=== PATIENT | female | born 1970 | race Two or more races ===

== ENCOUNTER 2020-09-30 11:22 | Emergency (ER) | payer OTHER ==
[~2020-09-30] VITALS: Ht 152.4 cm; Wt 69.4 kg
[2020-09-30] MEDS ORDERED: OXYcodone/APAP 5/325MG TABLET ONE (11:46)
--- NOTE | 2020-09-30 11:49 | NUR ---
PT ARRIVED COMPLAIING OF L ELBOW AND L HIP PAIN POST FALL. NICOLÁS JAUREGUI AT BEDSIDE TO DISCUSS POC WITH PT. PT RATES PAIN A 8/10 AND DOES NOT RADIATE. PT ACCOMPANIED BY FAMILY MEMEBER AT BEDSIDE. CMS INTACT. PT CONNECTED TO CONTINIOUS BP AND O2 MONITORS. TOMMIE.
--- NOTE | 2020-09-30 11:51 | NUR ---
PT MEDICATED FOR PAIN RATED 8/10 PER MAR.
[2020-09-30 11:55] VITALS: BP 135/54
[2020-09-30] MEDS ORDERED: OXYcodone/APAP 5/325MG TABLET PO ONE (12:00)
--- NOTE | 2020-09-30 12:08 | NUR ---
PT IN RAD
--- NOTE | 2020-09-30 13:08 | NUR ---
TASK RN: PT REPORTS IMPROVED PAIN WITH RX. DC EDUCATION PROVIDED, PT DEMONSTRATES UNDERSTANDING. PT AMBULATED STEADILY TO DC WITH RN AND FAMILY MEMBER. FAMILY TO TRANSPORT PT HOME.
== END 2020-09-30 13:10 | disposition home or self-care (01) ==
LOC: ED 11:49
DX: S50.02XA Contusion of left elbow, initial encounter (principal); S70.02XA Contusion of left hip, initial encounter; G89.11 Acute pain due to trauma; M25.552 Pain in left hip; M25.522 Pain in left elbow; I10 Essential (primary) hypertension; E11.9 Type 2 diabetes mellitus without complications; W01.0XXA Fall on same level from slipping, tripping and stumbling without subsequent striking against object, initial encounter; Y93.89 Activity, other specified; Y92.89 Other specified places as the place of occurrence of the external cause; Y99.0 Civilian activity done for income or pay
CPT/HCPCS: 99284